=== PATIENT | female | born 1990 | race Caucasian/White ===

== ENCOUNTER 2017-04-21 18:46 | Emergency (ER) | payer MEDICAID ==
[2017-04-21 19:10] VITALS: BP 140/70
--- NOTE | 2017-04-21 19:57 | UC ---
Abdominal Pain Female HPI - HPI Summary HPI Summary: The patient comes in today for: 1. Abdominal pain: Onset: Last week getting progressively worse. Initially, it was 01/02--now 06/01 Palliative/provocative: Nothing makes it better or worse. Quality: Sharp Region: Lower left quadrant. Severity: 06/01 Time: Constant. Associated symptoms: Previous evaluation: NOne. Last BM: noon today. Urination: Frequent. Dysuria: (-), fevers: (-), Last UTI: 18 years ago. Vaginal discharge: No blood. Patient is 16 weeks . She states that she has PCOS and has been trying to get for 6 years. Her home test was positive for UTI. She has an appointment with her ADMINISTRATIVE AIDE this . *. - History of Current Complaint Chief Complaint: UCAbdominalPain Stated Complaint: LFT SIDE ABD PAIN/ 15 WEEKS PREG Time Seen by Provider: 04/21/17 19:45 Hx Obtained From: Patient, Family/Histopathologist Hx Last Menstrual Period: DEC 24 2016 Allergies/Adverse Reactions: Allergies Allergy/AdvReac Type Severity Reaction Status Date / Time No Known Allergies Allergy Verified 04/21/17 18:55 Home Medications: Home Medications Vitamin TAB* 1 tab PO DAILY 04/21/17 [History Confirmed 04/21/17] PMH/Surg Hx/FS Hx/Imm Hx Previously Healthy: Yes - , PCOS--all other dx listed below no circled- (-). Neurological History: Migraine Psychological History: Anxiety, Depression - Surgical History Surgical History: Yes Surgery Procedure, Year, and Place: D&C - Family History Known Family History: Negative: Cardiac Disease, Hypertension - Social History Occupation: Employed Full-time Alcohol Use: None Substance Use Type: None Smoking Status (MU): Never Smoked Tobacco Review of Systems Constitutional: Negative Skin: Negative Eyes: Negative ENT: Negative Respiratory: Negative Cardiovascular: Negative Gastrointestinal: Abdominal Pain All Other Systems Reviewed And Are Negative: Yes Physical Exam Triage Information Reviewed: Yes Appearance: Well-Appearing, No Pain Distress - She is not grimacing with her pain and sits up and lays back on the exam table with no problems of pain., Well -Nourished Vital Signs: Initial Vital Signs Temp 98.2 F 04/21/17 18:56 Pulse 87 04/21/17 18:56 Resp 14 04/21/17 18:56 BP 140/70 04/21/17 18:56 Pulse Ox 100 04/21/17 18:56 Vital Signs Reviewed: Yes Eyes: Positive: Conjunctiva Clear. Negative: Discharge ENT: Positive: Hearing grossly normal. Negative: Pharyngeal erythema, Nasal congestion, Nasal drainage, TM bulging, TM dull, TM red, Tonsillar swelling, Tonsillar exudate Neck: Negative: Supple, Nontender, No Lymphadenopathy, Nuchal Rigidity Respiratory: Positive: Lungs clear, No respiratory distress, No accessory muscle use. Negative: Rhonchi, Wheezing Cardiovascular: Positive: RRR, No Murmur Abdomen Description: Positive: No Organomegaly, Soft, Other: - She is about 16- 17 week urterus in the midline. FHT's 150/min. When she heard it, she cried.. Negative: Nontender - She has tenderness of the left LQ. There is rebound and percussion tenderness. The abdomen is soft. There is no suprapubic tenderness., Distended, Guarding Musculoskeletal: Positive: Strength Intact, ROM Intact, No Edema Neurological: Positive: Alert, Muscle Tone Normal Psychological: Positive: Age Appropriate Behavior, Consolable Skin: Negative: rashes, breakdown Abd Pain Female Course/Dx - Course Course Of Treatment: Patient was told that I could not say what for sure was causing her abdominal pain and recommended that she go to the ER. She said that she was going home and will follow -up with her primary care provider this or go to the ER if she gets worse. - Differential Dx/Diagnosis Provider Diagnoses: abdominal pain. 16 week intrauterine . Discharge - Discharge Plan Condition: Stable Disposition: HOME Patient Education Materials: Abdominal Pain (ED) Additional Instructions: If you are not going to the ER tonight, please follow up with your ADMINISTRATIVE AIDE provider as soon as you can. If you get worse, please re-consider going to the ER.
== END 2017-04-21 20:44 | disposition home or self-care (01) ==
LOC: UCCORT 18:46
DX: O26.892 Other specified pregnancy related conditions, second trimester (principal); R10.32 Left lower quadrant pain; Z3A.16 16 weeks gestation of pregnancy; Z87.440 Personal history of urinary (tract) infections; G43.909 Migraine, unspecified, not intractable, without status migrainosus; F41.9 Anxiety disorder, unspecified; F32.9 Major depressive disorder, single episode, unspecified
CPT/HCPCS: 81003; 99212; G0463

== ENCOUNTER 2017-11-20 13:22 | Emergency (ER) | payer OTHER ==
--- NOTE | 2017-11-20 13:31 | UC ---
Throat Pain/Nasal Douglas HPI - History of Current Complaint Chief Complaint: UCRespiratory Stated Complaint: SINUS Time Seen by Provider: 11/20/17 13:31 Hx Last Menstrual Period: DEC 24 2016 - Allergies/Home Medications Allergies/Adverse Reactions: Allergies Allergy/AdvReac Type Severity Reaction Status Date / Time No Known Allergies Allergy Verified 04/21/17 18:55 PMH/Surg Hx/FS Hx/Imm Hx - Surgical History Surgical History: Yes Surgery Procedure, Year, and Place: D&C - Family History Known Family History: Positive: None Negative: Cardiac Disease, Hypertension - Social History Alcohol Use: None Substance Use Type: None Smoking Status (MU): Never Smoked Tobacco Discharge - Discharge Plan Condition: Stable Disposition: HOME Referrals: Perry Garcia MD [Primary Care Provider] -
--- NOTE | 2017-11-20 13:59 | UC ---
Throat Pain/Nasal Douglas HPI - HPI Summary HPI Summary: 27 year old female presents with sinus congestion and pain. - History of Current Complaint Chief Complaint: UCRespiratory Stated Complaint: SINUS Time Seen by Provider: 11/20/17 13:31 Hx Obtained From: Patient Hx Last Menstrual Period: DEC 24 2016 Onset/Duration: Sudden Onset Severity: Moderate Pain Scale Used: 0-10 Numeric - 5 - Allergies/Home Medications Allergies/Adverse Reactions: Allergies Allergy/AdvReac Type Severity Reaction Status Date / Time No Known Allergies Allergy Verified 11/20/17 14:21 Home Medications: Home Medications Drospirenone-Ethinyl Estradiol [Ocella 3-0.03 mg] 1 tab PO DAILY 11/20/17 [ History Confirmed 11/20/17] Metformin ER (NF) 250 mg PO BID 11/20/17 [History Confirmed 11/20/17] [id number] W/ APAP [Mucinex Fast-Max Cold Flu] 1 liq PO DAILY PRN 11/20 [History Confirmed 11/20/17] PMH/Surg Hx/FS Hx/Imm Hx Previously Healthy: Yes - Surgical History Surgical History: Yes Surgery Procedure, Year, and Place: D&C - Family History Known Family History: Positive: None Negative: Cardiac Disease, Hypertension - Social History Alcohol Use: None Substance Use Type: None Smoking Status (MU): Never Smoked Tobacco Review of Systems Constitutional: Negative Skin: Negative Eyes: Negative ENT: Sore Throat, Nasal Discharge, Sinus Congestion, Sinus Pain/Tenderness Respiratory: Negative Cardiovascular: Negative Gastrointestinal: Negative Genitourinary: Negative Motor: Negative Neurovascular: Negative Musculoskeletal: Negative Neurological: Negative Psychological: Negative All Other Systems Reviewed And Are Negative: Yes Physical Exam Triage Information Reviewed: Yes Vital Signs Reviewed: Yes Eye Exam: Normal ENT Exam: Normal Dental Exam: Normal Neck exam: Normal Neck: Positive: 1 Respiratory Exam: Normal Cardiovascular Exam: Normal Abdominal Exam: Normal Musculoskeletal Exam: Normal Neurological Exam: Normal Psychological Exam: Normal Skin Exam: Normal Throat Pain/Nasal Course/Dx - Differential Dx/Diagnosis Provider Diagnoses: sinusitis Discharge - Discharge Plan Condition: Stable Disposition: HOME Prescriptions: Azithromyxin KENY (NF) [Z-Keny (Zithromax) 250 mg tabs #6] 2 tab PO .TODAY, THEN 1 DAILY #6 tab LoraTADine TAB(NF) [Claritin 10 MG TAB(NF)] 10 mg PO DAILY #30 tab Magic M W2 Omi/Maal/Nyst/Lido* 5 ml SWISH SPIT QID PRN #120 ml PRN Reason: Pain Patient Education Materials: Sinusitis (ED) Referrals: Perry Garcia MD [Primary Care Provider] -
[2017-11-20 14:22] VITALS: BP 108/63
== END 2017-11-20 14:50 | disposition home or self-care (01) ==
LOC: UCCORT 13:22
DX: J32.9 Chronic sinusitis, unspecified (principal)
CPT/HCPCS: 99212; G0463